=== PATIENT | female | born 1980 | race Caucasian/White ===

== ENCOUNTER 2017-02-26 09:48 | Emergency (ER) | payer SELFPAY ==
[~2017-02-26] VITALS: Ht 160 cm; Wt 52.2 kg
[2017-02-26 12:01] VITALS: BP 114/68
== END 2017-02-26 12:01 | disposition home or self-care (01) ==
LOC: ED 09:48
DX: N64.4 Mastodynia (principal)
CPT/HCPCS: J1885

== ENCOUNTER 2017-03-01 08:40 | Emergency (ER) | payer OTHER ==
[2017-03-01 09:38] LABS: BASOPHIL % 0.5 % (0-2); PLATELET COUNT 339 x10^3mcL (130-400); RED CELL DISTRIBUTION WIDTH 14.4 % (11.5-14.5)
[2017-03-01 09:52] LABS: CALCIUM 9.2 mg/dL (8.5-10.1); CARBON DIOXIDE 24.4 mmol/L (21-32); CHLORIDE SERUM 104 mmol/L (98-107); GFR1 > 60 mL/min; GLUCOSE SERUM 84 mg/dL (74-106); POTASSIUM SERUM 3.8 mmol/L (3.5-5.1); SODIUM SERUM 139 mmol/L (136-145)
[2017-03-01 09:55] LABS: ALBUMIN 3.7 g/dL (3.4-5.0); ALKALINE PHOSPHATASE 32 U/L (46-116); ALT/SGPT 23 U/L (14-59); AST/SGOT 17 U/L (15-37); BILIRUBIN TOTAL 0.73 mg/dL (0.20-1.00); HDL CHOLESTEROL 47 mg/dL (40-60); LIPASE 99 IU/L (73-393); TOTAL PROTEIN, SERUM 7.5 g/dL (6.4-8.2); TRIGLYCERIDES 161 mg/dL (<150)
[2017-03-01 09:56] LABS: CHOLESTEROL 234 mg/dL (<200)
[2017-03-01 10:08] LABS: T3 TOTAL 0.92 ng/mL
[2017-03-01 10:09] LABS: FREE T4 1.13 ng/dL (0.76-1.46); FREE THYROXINE INDEX 3.2 ug/dL (1.4-4.5); T4(THYROXINE) 10.3 ug/dL (4.7-13.3)
[2017-03-01 11:43] VITALS: BP 121/74
== END 2017-03-01 11:43 | disposition home or self-care (01) ==
LOC: ED 08:40
PROVIDERS: Specialist
DX: S46.912A Strain of unspecified muscle, fascia and tendon at shoulder and upper arm level, left arm, initial encounter (principal); R11.2 Nausea with vomiting, unspecified; M25.511 Pain in right shoulder; K21.9 Gastro-esophageal reflux disease without esophagitis; Y93.39 Activity, other involving climbing, rappelling and jumping off; Y99.8 Other external cause status; Y92.89 Other specified places as the place of occurrence of the external cause
CPT/HCPCS: 83880; 84439; J0780; J2405; J7030; Q0092

== ENCOUNTER 2017-04-28 06:04 | Emergency (ER) | payer OTHER ==
[~2017-04-28] VITALS: Ht 160 cm; Wt 50.3 kg
[2017-04-28 06:15] VITALS: Ht 160 cm; Wt 50.3 kg
[2017-04-28 07:30] LABS: CALCIUM 8.4 mg/dL (8.5-10.1); CARBON DIOXIDE 26.3 mmol/L (21-32); CHLORIDE SERUM 104 mmol/L (98-107); CREATININE SERUM 0.9 mg/dL (0.6-1.0); GFR1 > 60 mL/min; GLUCOSE SERUM 91 mg/dL (74-106); POTASSIUM SERUM 3.7 mmol/L (3.5-5.1); SODIUM SERUM 141 mmol/L (136-145)
[2017-04-28 07:34] VITALS: BP 102/69
[2017-04-28 07:34] LABS: ALBUMIN 3.6 g/dL (3.4-5.0); ALKALINE PHOSPHATASE 38 U/L (46-116); ALT/SGPT 18 U/L (14-59); AMYLASE 52 U/L (25-115); AST/SGOT 15 U/L (15-37); BILIRUBIN TOTAL 0.6 mg/dL (0.20-1.00); LIPASE 103 IU/L (73-393); PLATELET COUNT 303 x10^3mcL (130-400); TOTAL PROTEIN, SERUM 7.3 g/dL (6.4-8.2)
[2017-04-28 07:35] LABS: RED CELL DISTRIBUTION WIDTH 17.5 % (11.5-14.5)
== END 2017-04-28 07:47 | disposition home or self-care (01) ==
LOC: ED 06:04
PROVIDERS: Specialist
DX: R10.9 Unspecified abdominal pain (principal)
CPT/HCPCS: 83880; J1200; J1630; J2405; J7030

== ENCOUNTER 2017-06-03 14:19 | Emergency (ER) | payer OTHER ==
[~2017-06-03] VITALS: Ht 160 cm; Wt 50.8 kg
[2017-06-03 15:22] VITALS: Ht 160 cm; Wt 50.8 kg
[2017-06-03 16:13] LABS: BASOPHIL % 0.2 % (0-2); PLATELET COUNT 294 x10^3mcL (130-400)
[2017-06-03 16:14] LABS: RED CELL DISTRIBUTION WIDTH 17.9 % (11.5-14.5)
[2017-06-03 16:20] LABS: CALCIUM 9.4 mg/dL (8.5-10.1); CHLORIDE SERUM 100 mmol/L (98-107); CREATININE SERUM 0.8 mg/dL (0.6-1.0); GFR1 > 60 mL/min; GLUCOSE SERUM 97 mg/dL (74-106); POTASSIUM SERUM 3.7 mmol/L (3.5-5.1); SODIUM SERUM 138 mmol/L (136-145)
[2017-06-03 16:24] LABS: ALBUMIN 4.2 g/dL (3.4-5.0); ALKALINE PHOSPHATASE 45 U/L (46-116); ALT/SGPT 19 U/L (14-59); AST/SGOT 20 U/L (15-37); BILIRUBIN TOTAL 0.6 mg/dL (0.20-1.00); CHOLESTEROL 213 mg/dL (<200); CHOLESTEROL/HDL RATIO 3.3; HDL CHOLESTEROL 65 mg/dL (40-60); LIPASE 88 IU/L (73-393); TOTAL PROTEIN, SERUM 8.3 g/dL (6.4-8.2); TRIGLYCERIDES 108 mg/dL (<150)
[2017-06-03 18:26] LABS: UA SPECIFIC GRAVITY <=1.005 (1.005-1.035); microscopic required? YES; urine erythrocyte TRACE (NEGATIVE)
[2017-06-03 19:29] LABS: AMPHETAMINE QUAL UR NONE DETECTED (NEG <=1000)
[2017-06-03 20:16] VITALS: BP 109/72
== END 2017-06-03 20:16 | disposition home or self-care (01) ==
LOC: ED 14:19
PROVIDERS: Emergency Medicine; Specialist
DX: R10.9 Unspecified abdominal pain (principal); R11.10 Vomiting, unspecified; Z87.19 Personal history of other diseases of the digestive system; M41.9 Scoliosis, unspecified
CPT/HCPCS: 83880; J1630; J2060; J2405; J7030; Q0092

== ENCOUNTER 2017-11-08 09:42 | Emergency (ER) | payer OTHER ==
[~2017-11-08] VITALS: Ht 160 cm; Wt 56.0 kg
[2017-11-08 09:49] VITALS: Ht 160 cm; Wt 56.0 kg
[2017-11-08 13:26] VITALS: BP 101/77
== END 2017-11-08 13:26 | disposition home or self-care (01) ==
LOC: ED 09:42
DX: S46.911A Strain of unspecified muscle, fascia and tendon at shoulder and upper arm level, right arm, initial encounter (principal); S16.1XXA Strain of muscle, fascia and tendon at neck level, initial encounter; M79.1 Myalgia; Z88.1 Allergy status to other antibiotic agents; Z88.5 Allergy status to narcotic agent; X58.XXXA Exposure to other specified factors, initial encounter; Y93.89 Activity, other specified; Y92.89 Other specified places as the place of occurrence of the external cause; Y99.8 Other external cause status
CPT/HCPCS: J1885; Q0092

== ENCOUNTER 2019-03-30 17:27 | Emergency (ER) | payer OTHER ==
[~2019-03-30] VITALS: Ht 165.1 cm; Wt 59.6 kg
[2019-03-30 17:32] VITALS: Ht 165.1 cm; Wt 59.6 kg
[2019-03-30 18:29] VITALS: BP 112/72
== END 2019-03-30 18:29 | disposition home or self-care (01) ==
LOC: ED 17:27
DX: S00.11XA Contusion of right eyelid and periocular area, initial encounter (principal); Z88.1 Allergy status to other antibiotic agents; Z88.6 Allergy status to analgesic agent; Z98.82 Breast implant status; X58.XXXA Exposure to other specified factors, initial encounter; Y93.89 Activity, other specified; Y92.89 Other specified places as the place of occurrence of the external cause; Y99.8 Other external cause status